=== PATIENT | female | born 1955 | race Caucasian/White ===

== ENCOUNTER → 2017-06-01 17:18 | Outpatient (CLI) | payer BC | END | disposition home or self-care (01) | LOC: D.MAMMO 05-17 13:00 | DX: Z12.31 Encounter for screening mammogram for malignant neoplasm of breast (principal) ==

== ENCOUNTER 2019-05-01 08:00 | Outpatient (CLI) | payer SELFPAY | END 2019-05-01 23:59 | disposition home or self-care (01) | LOC: D.MAMMO 08:00 | PROVIDERS: ATTEND Family Medicine | DX: Z12.31 Encounter for screening mammogram for malignant neoplasm of breast (principal) ==

== ENCOUNTER 2020-05-02 11:30 | Outpatient (CLI) | payer MEDICARE | END 2020-05-02 12:30 | disposition home or self-care (01) | LOC: D.MAMMO 11:30 | PROVIDERS: ATTEND Obstetrics & Gynecology | DX: Z12.31 Encounter for screening mammogram for malignant neoplasm of breast (principal) ==